=== PATIENT | male | born 1940 | race Caucasian/White ===

== ENCOUNTER 2023-06-12 06:42 | Outpatient (CLI) | payer MEDICARE, OTHER, SELFPAY ==
--- NOTE | 2023-06-12 06:51 | CT_ITS ---
WS: [id number] CT chest wo con [id number] HISTORY: INTERSTITIAL LUNG DISEASE TECHNIQUE: Axial imaging performed through the thorax. Coronal and sagittal reformats are submitted. All CT scans at [facility] use at least one of these dose optimization techniques: automated exposure control; mA and/or kV adjustment per patient size (includes targeted exams where dose is mat ched to clinical indication); or iterative reconstruction. CONTRAST: None DLP: 303.52 mGy.cm COMPARISON: Chest radiograph 05/26/2023 Lungs and central airway: Pulmonary hyperexpansion. Centrilobular emphysematous changes are noted robin aterally. Slightly greater expansion of the RIGHT lung. 5 mm pleural tag in the posterior RIGHT upper lobe. 7 mm noncalcified nodule RIGHT lower lobe. Focal scar at the lingula. No mass or pneumonia. Pleura: Normal. No pleural effusion. Heart and pericardium: Normal size heart with no pericardial effusion. Mediastinum and alin: No mediastinum or hilar adenopathy. Vessels: Moderate atherosclerosis thoracic aorta. Mild ectasia and dilatation. Mildly prominent pulmo nary artery. Heavy coronary artery calcification. Chest wall and lower neck: Mild pectus excavatum. Upper abdomen: Suprarenal calcifications are dense near the mesenteric artery origins. No adrenal mas s. Osseous structures: Osteopenia. Multiple osteoporotic compression fractures throughout the thoracic s pine. No retropulsion. Fractures at T3, T4, T5, T6, T7, T8, and T12. IMPRESSION: 1. 7 mm RIGHT lower lobe pulmonary nodule. Indeterminate solid pulmonary nodule measuring 7 mm. In a high-risk patient with a solid nodule of 6- 8 mm, recommend CT at 6-12 months. If stable, then CT at 18-24 months. 2. Severe chronic emphysema. 3. Extensive coronary artery calcification throughout all 3 major coronary arteries. 4. Osteoporotic compression fractures at multiple levels in the thoracic spine.
== END 2023-06-12 06:43 | disposition home or self-care (01) ==
LOC: RAD 06:42
PROVIDERS: PCP Family Medicine; Visit Provider Family Medicine
DX: J84.9 Interstitial pulmonary disease, unspecified (principal); R91.1 Solitary pulmonary nodule; J43.9 Emphysema, unspecified
CPT/HCPCS: 71250

== ENCOUNTER 2023-07-25 13:53 | Outpatient (CLI) | payer MEDICARE, OTHER, SELFPAY ==
--- NOTE | 2023-07-25 13:58 | XR_ITS ---
WS: [email or web address] SCREENING DEXA SCAN Cardio control CLINICAL INFORMATION: COMPRESSION FX OF THORACIC VERTEBRA COMPARISON: None. FINDINGS: The L1-L4 bone mineral density measures 1.118 g/cm2. This corresponds to a T score score of -0.9 and Z score of -0.1. Left femoral neck bone mineral density measures 0.766 g/cm2. This corresponds to a T score of -2.3 an d Z score of -1.0. Right femoral neck bone mineral density measures 0.799 g/cm2. This corresponds to a T score -2.1of an d Z score of -0.7. Mean femoral neck bone mineral density measures 0.782 g/cm2. This corresponds to a T score of -2.2 an d Z score of -0.9. XR/XR DEXA axial skeleton* [id number] IMPRESSION: Normal bone mineralization lumbar spine approaching osteopenia. Osteopenia femo ral necks approaching osteoporosis.. Patient's FRAX calculated 10 year probability for major osteoporotic fracture i s 26.5% and osteoporotic hip fracture is 14.8%.
== END 2023-07-25 13:54 | disposition home or self-care (01) ==
LOC: RAD 13:53
PROVIDERS: PCP Family Medicine; Visit Provider Family Medicine
DX: M81.0 Age-related osteoporosis without current pathological fracture (principal); M85.89 Other specified disorders of bone density and structure, multiple sites
CPT/HCPCS: 77080

== ENCOUNTER 2023-11-06 09:39 | Outpatient (CLI) | payer MEDICARE, OTHER, SELFPAY ==
--- NOTE | 2023-11-06 09:46 | CT_ITS ---
WS: [id number] CT CERVICAL SPINE TECHNIQUE: Noncontrast CT of the cervical spine with coronal and sagittal reformatted images. CLINICAL INFORMATION: FX OF CSPINE. No reported history of trauma. COMPARISON: None. DLP: 162.[address] scans at [facility] use at least one of these dose optimization techniques: automated e xposure control; mA and/or kV adjustment per patient size (includes targeted exams where dose is matc hed to clinical indication); or iterative reconstruction. FINDINGS: Straightening of normal cervical lordosis. Osteopenia. Evidence of prior posterior element fusion C2- C4 with fixation wires. Interbody bony fusion C2-C3 and C3-C4 with disc space narrowing worse C5-6 wi th vacuum disc phenomenon. Chronic fracture deformity involving the dens. Transverse and vertical lucency through the anterior d ens with cortical step-off in this area. This may be chronic but difficult to entirely exclude more r ecent fracture. Recommend 6-week follow-up cervical spine CT to assess for changes if persistent neck pain. No evidence of displacement. C2-C3: Normal. C3-C4: Mild facet arthropathy. Mild LEFT and no significant RIGHT foraminal narrowing. Spinal canal i s patent. C4-C5: Disc osteophyte complex with endplate ridging. Moderate bilateral bony foraminal narrowing. Mo derate facet arthropathy with uncovertebral joint hypertrophy. Mild central canal stenosis. C5-C6: Disc osteophyte complex with endplate ridging. Mild central canal stenosis. Severe RIGHT and m oderate LEFT bony foraminal narrowing. Advanced facet arthropathy. C6-C7: Mild disc osteophyte complex with advanced facet arthropathy. Moderate to severe RIGHT and mil d LEFT bony foraminal narrowing. C7-T1: Moderate bilateral bony foraminal narrowing. Moderate facet arthropathy. Mild central canal st enosis with small central disc osteophyte protrusion. Mild chronic appearing anterior wedging at T1 superior endplate. Visualized posterior nasopharynx: Normal. Prevertebral soft tissues: Normal. Dense carotid bulb calcification. Recommend further evaluation with ultrasound. CT/CT cervical spin wo con* [id number] IMPRESSION: 1. Prior postoperative changes posterior element fusion C2-C4. Posterior fixat ion wires. 2. Chronic fracture deformity involving the dens with transverse and verticall y oriented lucency. This appears relatively well-corticated and may represent c hronic incompletely healed fracture. Acute fracture is felt to be less likely a lthough difficult to completely exclude. Recommend follow-up in 6 weeks with ce rvical spine CT. No displacement. No evidence of soft tissue edema in this area . No prior CT comparisons 3. Multilevel central canal stenosis with multilevel severe bony foraminal cora rowing described above. 4. Dense carotid bulb calcification. Recommend further evaluation with ultraso und.
== END 2023-11-06 09:40 | disposition home or self-care (01) ==
LOC: RAD 09:42
PROVIDERS: PCP Family Medicine; Visit Provider Family Medicine
DX: S12.121A Other nondisplaced dens fracture, initial encounter for closed fracture (principal); M43.22 Fusion of spine, cervical region; M48.02 Spinal stenosis, cervical region; M99.61 Osseous and subluxation stenosis of intervertebral foramina of cervical region; I65.23 Occlusion and stenosis of bilateral carotid arteries; M46.94 Unspecified inflammatory spondylopathy, thoracic region; M99.62 Osseous and subluxation stenosis of intervertebral foramina of thoracic region; X58.XXXA Exposure to other specified factors, initial encounter
CPT/HCPCS: 72125

== ENCOUNTER 2023-12-10 13:57 | Outpatient (CLI) | payer MEDICARE, OTHER, SELFPAY ==
--- NOTE | 2023-12-10 13:59 | CT_ITS ---
WS: [email or web address] CT chest wo con [id number] HISTORY: LUNG NODULE TECHNIQUE: Axial imaging performed through the thorax. Coronal and sagittal reformats are submitted. All CT scans at [facility] use at least one of these dose optimization techniques: automated exposure control; mA and/or kV adjustment per patient size (includes targeted exams where dose is mat ched to clinical indication); or iterative reconstruction. CONTRAST: None DLP: 309.97 mGy.cm COMPARISON: 06/12/2023 Lungs and central airway: Marked pulmonary hyperexpansion. Centrilobular emphysema. Previously descri bed nodule in the RIGHT lower lobe is reidentified. Nodule is slightly increased in size measuring 9 x 5 x 7 mm. There is peripheral groundglass attenuation now present. New slightly spiculated nodule s uperior segment LEFT lower lobe measures 9 x 9 x 13 mm. Additional subsolid nodule in the anterior RI GHT middle lobe Pleura: Normal. No pleural effusion. Heart and pericardium: Moderate cardiomegaly. No effusion. Heavy coronary artery calcification. Mediastinum and alin: Hilar regions are difficult to evaluate on this unenhanced exam. No adenopathy identified. Vessels: Moderate atherosclerotic plaque in the thoracic aorta and proximal great vessels. Extensive plaque continues into the subclavian arteries bilaterally. Chest wall and lower neck: No soft tissue masses. Upper abdomen: Moderate amount of suprarenal aortic calcification with a large amount of calcificatio n continuing into the SMA. Hepatic granulomata. No adrenal mass. Pancreatic atrophy. Osseous structures: Advanced thoracic spondylosis with increased kyphosis. Multiple osteoporotic comp ression fractures. The L1 compression fracture is new since 06/12/2023 without retropulsion by 20%. The remaining anterior wedge compression fractures in the thoracic spine are unchanged. CT/CT chest wo con [id number] IMPRESSION: 1. Slight increase in size RIGHT lower lobe pulmonary nodule since 06/12/2023. N odule now measures 9 x 5 x 7 mm with surrounding groundglass attenuation. 2. New slightly spiculated nodule superior segment LEFT lower lobe measures 9 x 9 x 13 mm. There is an additional 5 mm subsolid nodule in the RIGHT middle lo be. 3. Recommendation: Consider follow-up PET/CT imaging or 3-month chest CT follo w-up. Increasing suspicion for malignancy. 4. Advanced centrilobular emphysema. 5. Advanced atherosclerotic disease within the coronary arteries, thoracic aor ta and suprarenal aorta and SMA. 6. New L1 compression fracture by 20%. 7. Additional stable osteoporotic compression fractures throughout the thoraci c spine.
== END 2023-12-10 13:58 | disposition home or self-care (01) ==
LOC: RAD 13:58
PROVIDERS: PCP Family Medicine; Visit Provider Family Medicine
DX: R91.8 Other nonspecific abnormal finding of lung field (principal); J43.2 Centrilobular emphysema; I51.7 Cardiomegaly; I70.0 Atherosclerosis of aorta; K75.3 Granulomatous hepatitis, not elsewhere classified; K86.89 Other specified diseases of pancreas; M47.814 Spondylosis without myelopathy or radiculopathy, thoracic region; M40.204 Unspecified kyphosis, thoracic region; S32.010A Wedge compression fracture of first lumbar vertebra, initial encounter for closed fracture; X58.XXXA Exposure to other specified factors, initial encounter
CPT/HCPCS: 71250

== ENCOUNTER 2024-01-21 06:42 | Outpatient (CLI) | payer MEDICARE, OTHER, SELFPAY ==
--- NOTE | 2024-01-21 07:00 | USCV_ITS ---
Nicolas Goff Age: 83 Gender: M : 1940 Exam Date: 01/21/2024 07:13 Ordering Phys: Chris Leon MD Technologist: Exam Location: [facility] Indication: sob cp as BP: 143 / 73 HR: 76 Rhythm: Sinus Technical Quality: Adequate MEASUREMENTS (Male / Female) Normal Values 2D ECHO LV Diastolic Diameter PLAX 4.7 cm 4.2 - 5.9 / 3.9 - 5.3 cm IVS Diastolic Thickness 1.4 cm 0.6 - 1.0 / 0.6 - 0.9 cm IVS Systolic Thickness 1.8 cm LVPW Diastolic Thickness 1.3 cm 0.6 - 1.0 / 0.6 - 0.9 cm LVPW Systolic Thickness 1.7 cm LVOT Diameter 2.0 cm LV Ejection Fraction 2D Teich 59.5 % LV Ejection Fraction MOD 4C 49.6 % LV Ejection Fraction MOD 2C 52.0 % LV Ejection Fraction 2C AL 52.3 % LA Diameter 3.1 cm RA Systolic Volume 4C AL 34.9 ml RA Systolic Volume 4C MOD 33.9 ml M-MODE LA Ao Ratio MM 0.8 AV Cusp Separation MM 2.4 cm DOPPLER AV Peak Velocity 180.3 cm/s LVOT Peak Velocity 98.0 cm/s AV Area Cont Eq vti 2.3 cm squared AV Area Cont Eq pk 1.7 cm squared MV Peak Velocity 95.0 cm/s MV Area PHT 4.4 cm squared Mitral E to A Ratio 0.7 TR Peak Velocity 312.0 cm/s TR Peak Gradient 38.9 mmHg TV Peak E Velocity 72.0 cm/s Right Atrial Pressure 3.0 mmHg Pulmonary Artery Systolic Pressu 41.9 mmHg PV Peak Velocity 92.0 cm/s FINDINGS Left Ventricle Mild diffuse hypokinesis of the mid and apical septum, anteroseptum, and the LV apex.Grade I/IV diastolic dysfunction (abnormal relaxation filling pattern), normal to mildly elevated filling pressures. LV ejection fraction of 49% Right Ventricle The right ventricle is normal in size and function. Right Atrium The right atrium is normal in size. Left Atrium Mildly increased left atrial size. Mitral Valve Mild mitral annular calcification. Aortic Valve Thickened aortic valve. [id number]-mwwyrnac aortic valve regurgitation. Tricuspid Valve Trace to mild tricuspid valve regurgitation. Estimated pulmonary artery peak systolic pressure 42 mmHg Pulmonic Valve No gross abnormalities noted Pericardium No pericardial effusion. Aorta Normal ascending aorta dimension. IVC The inferior vena cava appears normal. CONCLUSIONS Mild diffuse hypokinesis of the mid and apical septum, anteroseptum, and LV apex.Grade I/IV diastolic dysfunction (abnormal relaxation filling pattern), normal to mildly elevated filling pressures. LV ejection fraction of 49%. Mildly increased left atrial size. Thickened aortic valve. [id number] aortic valve regurgitation. Mild mitral annular calcification. Trace to mild tricuspid valve regurgitation. Mild pulmonary hypertension with an estimated pulmonary artery peak systolic pressure of 42 mmHg. There is no pericardial effusion. There are no intracardiac masses. No similar previous studies are available for comparison Dr. Leon was informed about this finding Dr Nai Pineda MD FAC (Electronically Signed) Final Date: 23 January 2024 10:54 S
--- NOTE | 2024-01-21 07:02 | MR_ITS ---
WS: [id number] MRI HEAD WITH CONTRAST TECHNIQUE: Sagittal T1, T2 axial, T2 axial FLAIR, axial susceptibility weighted imaging, axial diffus ion weighted images, and coronal T2 images were obtained. Pre and post-T1 axial and post T1 coronal i mages. ADC and FSPGR images. CLINICAL INFORMATION: CVA (I63.9) COMPARISON: None. FINDINGS: No evidence of restricted diffusion to suggest acute ischemia. Ventricular system and basal cisterns are patent. Postoperative dorsal fusion in the upper cervical spine partially visualized. Advanced sm all vessel changes with confluent periventricular T2 signal abnormality. Advanced small vessel change s in the nikolay. Mild parenchymal volume loss. Moderate to advanced symmetric atrophy temporal lobes hi ppocampal formations. Tiny chronic lacunar infarct LEFT thalamus and RIGHT cerebellum. Normal vascular flow voids at the skull base. No extra-axial fluid collections. Paranasal sinuses are well aerated. Mastoid air cells are well aerate. No abnormal gadolinium enhancement. No other acute findings. A few small punctate foci of hemosiderin in the RIGHT temporal lobe. MR/MR head wo/w con [id number] IMPRESSION: 1. No evidence of restricted diffusion to suggest acute ischemia. 2. Advanced small vessel changes. Mild parenchymal volume loss. 3. Advanced small vessel changes in the nikolay. 4. Small chronic lacunar infarcts in the LEFT thalamus and RIGHT cerebellum. 5. A few small punctate foci of hemosiderin in the RIGHT temporal lobe. 6. Moderate to advanced symmetric atrophy temporal lobes and hippocampal forma tions. 7. No abnormal gadolinium enhancement.
[2024-01-21] MEDS: gadobenate dimeglumine 20 mL vial 15 ML IV (08:33)
== END 2024-01-21 06:43 | disposition home or self-care (01) ==
PROVIDERS: PCP Family Medicine; Visit Provider Family Medicine
DX: I63.9 Cerebral infarction, unspecified (principal); G31.89 Other specified degenerative diseases of nervous system; I63.81 Other cerebral infarction due to occlusion or stenosis of small artery; I50.30 Unspecified diastolic (congestive) heart failure; I35.2 Nonrheumatic aortic (valve) stenosis with insufficiency
CPT/HCPCS: 70553; 93306; A9577

== ENCOUNTER 2024-01-23 08:36 | Outpatient (CLI) | payer MEDICARE, OTHER, SELFPAY ==
--- NOTE | 2024-01-23 09:02 | PETR_ITS ---
PROCEDURE INFORMATION: Exam: PET/CT Skull Base to Mid-thigh Exam date and time: 01/23/2024 10:17 AM Age: 83 years old Clinical indication: Abnormal findings and device placement; Multiple lung nodules LABS AND CLINICAL REPORTS: Glucose: 90 mg/dl Treatment strategy for malignancy (PET staging): Initial Staging (PI) TECHNIQUE: Imaging protocol: Following at least four-hour fasting and following the injection of radiopharmaceutical, low dose CT images were obtained. Then, PET images were obtained. Attenuation corrected images were constructed using the CT scan. Fused images of PET and CT were reviewed. The standardized uptake values (SUV) reported below are maximum values within a region of interest, expressed in gm/ml. Exam includes orbital meatal line to mid-thigh. Radiopharmaceutical: 10.78 mCi F-18 FDG (Fluorodeoxyglucose), IV. Time of imaging post radiopharmaceutical administration: 1 hour Injection site: RIGHT WRIST COMPARISON: CT chest con [id number] 12/10/2023 3:04 PM FINDINGS: Brain: Normal physiologic uptake. Pharynx: No abnormal uptake. Larynx: No abnormal uptake. Lungs, pleura and trachea: Moderate size consolidation in the left lower lobe measuring up to 10.3 SUV is compatible with pneumonia. Multiple small nodular FDG avid opacities new since 12/10/2023 are compatible with additional benign inflammatory findings. This includes 1.7 cm left lower lobe focus on series 202, image 252 measuring 7.7 SUV, a few right lower lobe lower peripheral ground-glass opacities measuring up to 1.2 cm with the highest uptake of 6.4 SUV, subcentimeter focus in the lingula measuring 6.6 SUV, right middle lobe perihilar focus measuring 7.1 SUV right upper lobe sub cm focus measuring 1.9 SUV. Nodular opacities present on 12/10/2023 decreased in size compatible with benign inflammatory findings (in the superior segment of the left lower lobe from 1 cm to 0.4 cm, in the right lower lobe from 3 cm to 1 cm). Heart: Unremarkable. There is no cardiomegaly. Severe coronary artery calcification is present. There is no pericardial effusion. Mediastinal space: See below in lymph nodes . Liver: No abnormal uptake. Maximum uptake is 4 SUV. Multiple punctate calcified granulomas. Gallbladder and biliary ducts: No abnormal uptake. No calcified gallstones. Pancreas: No abnormal uptake. Spleen: No abnormal uptake. No splenomegaly. Adrenal glands: No abnormal uptake. No nodules. Kidneys and ureters: Normal physiologic uptake. No hydronephrosis. Stomach and bowel: No abnormal uptake. Vasculature: No abnormal uptake. No aortic aneurysm Lymph nodes: Increased uptake of 7 SUV within normal size subcarinal lymph nodes is likely benign no FDG avid lymphadenopathy in the neck, abdomen, pelvis, and extremities. Skeleton: Increased linear uptake of 8.2 SUV in the right stenoclavicular joint compatible with benign inflammatory/degenerative finding. No abnormal uptake suspicious for malignancy. Mild chronic compression fractures of T6, T8, L1 and L2. Soft tissues: No abnormal uptake in the visualized head, neck, chest, abdomen, pelvis, and extremities. PET/PET skull to thigh INIT [id number] IMPRESSION: No abnormal radiotracer uptake concerning for malignancy. Waxing and waning FDG avid benign inflammatory nodular opacities in the lungs. In comparison with 12/10/2023 there is significant progression in the lungs with new moderate size inflammatory consolidation in the left lower lobe for clinical correlation with pneumonia.
== END 2024-01-23 08:37 | disposition home or self-care (01) ==
PROVIDERS: PCP Family Medicine; Visit Provider Family Medicine
DX: R91.8 Other nonspecific abnormal finding of lung field (principal); I25.84 Coronary atherosclerosis due to calcified coronary lesion
CPT/HCPCS: 78815; A9552